=== PATIENT | male | born 1995 | race Caucasian/White ===

== ENCOUNTER 2018-12-20 19:38 | Emergency (ER) | payer BC ==
[2018-12-20 19:50] VITALS: BP 162/94
--- NOTE | 2018-12-20 20:09 | RADIOLOGY REPORT (SQ) ---
EXAM DESCRIPTION: CLAVICLE LEFT COMPLETED DATE/TIME: 12/20/2018 8:00 pm REASON FOR STUDY: fell into pool COMPARISON: None. NUMBER OF VIEWS: Two views. TECHNIQUE: Frontal and angled images were acquired of the left clavicle. LIMITATIONS: None. FINDINGS: MINERALIZATION: Normal. BONES: Angulated fracture of the middle third of the left clavicle. SOFT TISSUES: No obvious swelling or foreign body. OTHER: No other significant finding. IMPRESSION: Angulated fracture of the middle third of the left clavicle. No significant foreshorten ing. The acromioclavicular and coracoclavicular intervals appear intact. TECHNICAL DOCUMENTATION: JOB ID: [id number] [employer]- All Rights Reserved Reading location - IP/workstation name: [email or web address]
--- NOTE | 2018-12-20 20:17 | ER Document Report ---
HPI - HPI Time Seen by Provider: 12/20/18 20:11 Pain Level: 4 Notes: Patient is a 23-year-old male with no significant past medical history who presents complaining of left clavicular pain and swelling status post injury prior to arrival. Patient states that he was climbing into an aboveground pool when he fell forward and landed on his left shoulder. Patient states that he had immediate pain to his clavicular area. Patient states that he did not hit his head or lose consciousness. He has not had any neck or back pain associated. He has been able to ambulate since then without any difficulties. He is eating and drinking normally. Denies drug allergies. Denies any headache, fever, head injury, neck pain, changes in vision/speech/mentation/hearing, URI, sore throat, chest pain, palpitations, syncope, cough, shortness of breath, wheeze, dyspnea, abdominal pain, nausea/vomiting/diarrhea, urinary retention, dysuria, hematuria, loss of control of bowel or bladder, numbness/tingling, saddle anesthesia, muscle paralysis, or rash. 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 NECK: Normal range of motion, supple without lymphadenopathy. Non-tender. Spurling negative. No rigidity/meningismus. LUNGS: Breath sounds clear to auscultation bilaterally and equal. No wheezes rales or rhonchi. HEART: Regular rate and rhythm without murmurs, rubs, gallops. Musculoskeletal: Lt shoulder: LROM to passive/active due to pain. Strength 4+/5 due to pain. No erythema. + swelling at the mid clavicular area with + tenderness associated. Tenderness elicited at the clavicle is the pain described by patient. N/V intact distal otherwise. Extremities: No cyanosis, clubbing, or edema b/l. Peripheral pulses 2+. Capillary refill less than 3 seconds. NEUROLOGICAL: Normal speech, normal gait. Normal sensory, motor exams PSYCH: Normal mood, normal affect. SKIN: Warm, Dry, normal turgor, no rashes or lesions noted. - INFECTION CONTROL TRAVEL OUTSIDE OF THE [place] IN LAST 30 DAYS: No Course - Re-evaluation Re-evalutation: 12/20/18 20:14 Patient is an afebrile, well-hydrated, 23-year-old male who presents with a left mid clavicular fracture that is angulated, but not displaced. Vitals are acceptable without significant tachycardia, tachypnea, or hypoxia. PE is otherwise unremarkable for any neurovascular compromise, obvious tendon/ligament rupture, open fracture, septic joint. See XR result. Sling provided. Patient declined any Tylenol or Motrin at this time. Patient is nontoxic-appearing. No other labs or imaging warranted at this time based on H&P. Conservative measures otherwise for symptoms. Recheck with your PCM in 3-5 days. Call orthopedics tomorrow to schedule an appointment for further evaluation and management. Return to the ED with any worsening/concerning symptoms otherwise as reviewed in discharge. Patient is in agreement. - Vital Signs Vital signs: Temp Pulse Resp BP Pulse Ox 98.0 F 92 14 162/94 H 98 12/20/18 19:48 12/20/18 19:48 12/20/18 19:48 12/20/18 19:48 12/20/18 19:48 Discharge - Discharge Clinical Impression: Fracture of left clavicle Qualifiers: Encounter type: initial encounter Clavicle location: shaft Fracture type: closed Fracture alignment: nondisplaced Qualified Code(s): S42.025A - Nondisplaced fracture of shaft of left clavicle, initial encounter for closed fracture Condition: Stable Disposition: HOME, SELF-CARE Instructions: Fractured Clavicle ([facility]) Additional Instructions: Rest, Ice, Compression, Elevation Use sling as directed Tylenol/ibuprofen as needed F/u with your PCP in 3-5 days for a recheck Call orthopedics tomorrow to schedule an appointment for further evaluation and management Return to the ED with any worsening symptoms and/or development of fever, headache, chest pain, palpitations, syncope, shortness of breath, trouble breathing, abdominal pain, n/v/d, muscle weakness/paralysis, numbness/tingling, swelling, redness, or other worsening symptoms that are concerning to you. Prescriptions: Tramadol HCl [Ultram 50 mg Tablet] 50 mg PO Q4HP PRN #15 tab PRN Reason: Forms: Elevated Blood Pressure, Smoking Cessation Education, Return to Work Referrals: [facility] [Provider Group] - Follow up as needed ARTEMIO KATHLEEN MD [ACTIVE PROVISIONAL STAFF] - Follow up in 3-5 days
== END 2018-12-20 20:27 | disposition home or self-care (01) ==
LOC: ER 19:38
DX: S42.025A Nondisplaced fracture of shaft of left clavicle, initial encounter for closed fracture (principal); W17.89XA Other fall from one level to another, initial encounter; Y93.39 Activity, other involving climbing, rappelling and jumping off; F17.200 Nicotine dependence, unspecified, uncomplicated
CPT/HCPCS: 99283; 73000; L3650